=== PATIENT | male | born 1975 | race American Indian/Alaskan Native ===

== ENCOUNTER 2017-03-14 16:42 | Emergency (ER) | payer OTHER ==
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
[2017-03-14] MEDS ORDERED: MOTRIN PO ONE (21:26)
--- NOTE | 2017-03-14 22:17 | Cat Scan Report ---
FINAL REPORT PROCEDURE: CT CERVICAL SPINE WO CON TECHNIQUE: Computerized tomography of the cervical spine was performed from the skull base to T1 without contrast material. HISTORY: new onset neck pain COMPARISON: No prior studies are available for comparison. FINDINGS: There is loss of cervical lordosis. Vertebral height is within normal limits. An acute fracture is not identified. C1-2: Mild degree osteophyte formation is noted involving the atlantoaxial joint.. C2-3: No significant abnormality. C3-4: No significant abnormality. C4-5: No significant abnormality. C5-6: Broad-based disc osteophyte complex is noted eccentric to the left causing mild degree left lateral recess stenosis... C6-7: Moderate degree left neural foraminal stenosis is noted secondary to uncovertebral degenerative changes.. C7-T1: No significant abnormality. Other: No additional findings. IMPRESSION: Changes of cervical spondylosis as described above. No acute fracture Straightening of the cervical spine is most likely secondary to spasm or positioning..
[2017-03-14 23:04] VITALS: BP 125/88
== END 2017-03-14 23:03 | disposition home or self-care (01) ==
LOC: ED 16:42
DX: M47.9 Spondylosis, unspecified (principal); M48.02 Spinal stenosis, cervical region; M47.22 Other spondylosis with radiculopathy, cervical region; F17.200 Nicotine dependence, unspecified, uncomplicated
CPT/HCPCS: 72125